=== PATIENT | female | born 1995 ===

== ENCOUNTER 2021-08-31 07:30 | Inpatient (IN) | payer OTHER ==
[~2021-08-31] VITALS: Ht 157.5 cm; Wt 54.4 kg
[2021-09-10] MEDS ORDERED: SPRINTEC 28 DA1 EACH (09:16)
[2021-09-10] MEDS ORDERED: TIZANIDINE HCL4 MG (09:21)
[2021-09-11] MEDS ORDERED: NAPR500T14 PO (08:55)
[2021-09-11] MEDS ORDERED: Tylenol #3 PO (08:55)
== END 2021-09-11 10:32 | disposition home or self-care (01) | DRG 743 ==
LOC: O/R 09-09 06:08 → OB/GYN 09-09 09:45
PROVIDERS: ADMIT Obstetrics & Gynecology; ATTEND Obstetrics & Gynecology
PROC: 0UB90ZZ Excision of Uterus, Open Approach (ICD-10-PCS; principal; 2021-09-09 15:00)
DX: D25.9 Leiomyoma of uterus, unspecified (principal); Z20.822 Contact with and (suspected) exposure to COVID-19